=== PATIENT | female | born 1990 | race Caucasian/White ===

== ENCOUNTER 2016-08-03 09:06 | Emergency (ER) | payer OTHER ==
[~2016-08-03] VITALS: Ht 154.9 cm; Wt 86.0 kg
[~2016-08-03 09:06] MED LIST: CIPR500T4 PO; DICY10CA60 PO; ONDA4TAB8 PO
[2016-08-03 09:10] VITALS: Ht 154.9 cm; Wt 86.0 kg
[2016-08-03] MEDS ORDERED: IBUPROFEN 800 MG TAB PO ONE (10:00)
[2016-08-03] MEDS ORDERED: CYCLOBENZAPRINE 10 MG TAB PO ONE (10:00)
--- NOTE | 2016-08-03 10:27 | RADRPT ---
PROCEDURE: XR L-Spine. CLINICAL INDICATION: Low back pain. Low back injury TECHNIQUE: AP, lateral, and cone down views of the lumbar spine were obtained. COMPARISON: None FINDINGS: The lumbar lordosis is maintained. A very minimal dextroscoliosis is seen. The vertebral body and di sk space heights are normal. No acute fracture or subluxation is seen. No paravertebral soft tissu e abnormality is seen. An intrauterine device is identified. IMPRESSION: Unremarkable lumbar spine series. RPTAT: HPNM Physician Jean Date Time Electronically viewed and signed by Physician Jean on 08/03/2016 10:27 /
[2016-08-03] MEDS ORDERED: IBUP-1542 PO (10:42)
--- NOTE | 2016-08-03 14:10 | ERD ---
ER Documentation Chief Complaint Date/Time DATE: 08/03/16 TIME: 14:06 Chief Complaint lower back pain for past 4 days HPI 26-year-old female patient with no significant past medical history presents to the ED complaining of a back injury that occurred yesterday. She lifted up her 30 pound baby and accidentally felt a strain in her back. States that she tried taking ibuprofen at home with slight relief of symptoms. States that her last menses was 3 weeks ago. Denies any chest pain, shortness of breath, abdominal pain, nausea, vomiting, diarrhea, flank pain, dysuria, urgency, frequency, saddle anesthesia, urine or bowel incontinence, numbness or tingling. ROS All systems reviewed and are negative except as per history of present illness. Medications Home Meds Active Scripts Ibuprofen* (Motrin*) 600 Mg Tab, 600 MG PO Q6, #30 TAB Prov:ROSELIA JOSUE PA-C 08/03/16 Ciprofloxacin Hcl* (Ciprofloxacin Hcl*) 500 Mg Tablet, 500 MG PO BID for 7 Days , TAB Prov:OAR VILLAFANA 11/08/15 Dicyclomine Hcl* (Bentyl*) 10 Mg Capsule, 10 MG PO QID for 3 Days, CAP Prov:ORA VILLAFANA C 11/08/15 Ondansetron Hcl* (Zofran*) 4 Mg Tablet, 4 MG PO Q6H for NAUSEA AND/OR VOMITING, #30 TAB Prov:ORA VILLAFANA C 11/08/15 Allergies Allergies: Coded Allergies: No Known Allergy (Unverified , 11/08/15) PMhx/Soc History of Surgery: No Hx Neurological Disorder: No Hx Respiratory Disorders: No Hx Cardiac Disorders: No Hx Psychiatric Problems: No Hx Miscellaneous Medical Probl: No Hx Alcohol Use: Yes (occasionally) Hx Substance Use: No Hx Tobacco Use: No Physical Exam Vitals Vital Signs Date Time Temp Pulse Resp B/P Pulse Ox O2 Delivery O2 Flow Rate FiO2 08/03/16 09:10 97.8 77 18 110/71 100 Physical Exam Const: [id number], well-nourished. In no acute distress. Head: Atraumatic, normocephalic Eyes: Normal Conjunctiva without injection. No purulent discharge. ENT: Normal external ear, nose. Moist oropharynx without tonsillar exudates. Non -erythematous pharynx. Uvula midline. No drooling. No trismus. Neck: No cervical midline tenderness. Full range of motion. No meningismus. No cervical lymphadenopathy. No JVD. Resp: Clear to auscultation bilaterally. No wheezing, rhonchi, rales, or crackles. No accessory muscle use. No retractions. Cardio: Regular rate and rhythm. No murmurs, rubs or gallops. Abd: Soft, nontender,non distended. Normal bowel sounds. No palpable masses. No rebound tenderness. No guarding. Negative McBurney's point. Negative psoas sign. Negative obturator sign. Skin: No petechiae or rashes Back: No midline tenderness. No CVA tenderness. Ext: No cyanosis, or edema. Neur: Awake and alert. Normal gait. Normal coordination. Psych: Normal Mood and Affect Results 24 hrs Current Medications Medications (Trade) Dose Ordered Sig/Luz Marina Route PRN Reason Start Time Stop Time Status Last Admin Dose Admin Ibuprofen (Motrin) 800 mg ONCE ONCE PO 08/03/16 10:00 08/03/16 10:01 DC 08/03/16 09:52 Cyclobenzaprine HCl (Flexeril) 10 mg ONCE ONCE PO 08/03/16 10:00 08/03/16 10:01 DC 08/03/16 09:52 Procedures/MDM 18-year-old female patient with no significant past medical history presents the ED complaining of lower back pain that started about 4 days ago after lifting up her baby that was about 30 pounds. Patient is afebrile nontoxic appearing. Patient has normal vital signs. Patient does have slight tenderness to palpation of L1 region. Therefore a lumbar x-ray was ordered to further evaluate patient. Patient was given ibuprofen and Flexeril here in the ED. PROCEDURE: XR L-Spine. CLINICAL INDICATION: Low back pain. Low back injury TECHNIQUE: AP, lateral, and cone down views of the lumbar spine were obtained. COMPARISON: None FINDINGS: The lumbar lordosis is maintained. A very minimal dextroscoliosis is seen. The vertebral body and disk space heights are normal. No acute fracture or subluxation is seen. No paravertebral soft tissue abnormality is seen. An intrauterine device is identified. IMPRESSION: Unremarkable lumbar spine series. Patient likely sustained a back sprain/strain. Patient is ambulating here in the ED without difficulty. Denies saddle anesthesia, numbness or tingling, urine or bowel incontinence, weakness. Low suspicion for cauda equina syndrome, cord compression, nephrolithiasis, aortic aneurysm, aortic dissection, epidural abscess, spinal hematoma, malignancy, pyelonephritis, or other emergent conditions. Discharge medications: Ibuprofen Follow up with primary care physician in 1-2 days. Instructed patient to return to the ED sooner for any worsening symptoms. Patient's questions were answered. Patient understood and agreed with discharge plan. Patient discharged stable. Departure Diagnosis: Primary Impression: Injury of back Encounter type: initial encounter Qualified Code: S39.92XA - Injury of back , initial encounter Condition: Stable Patient Instructions: Back Sprain/Strain Referrals: [facility] YOU HAVE RECEIVED A MEDICAL SCREENING EXAM AND THE RESULTS INDICATE THAT YOU DO NOT HAVE A CONDITION THAT REQUIRES URGENT TREATMENT IN THE EMERGENCY DEPARTMENT. FURTHER EVALUATION AND TREATMENT OF YOUR CONDITION CAN WAIT UNTIL YOU ARE SEEN IN YOUR DOCTORS OFFICE WITHIN THE NEXT 1-2 DAYS. IT IS YOUR RESPONSIBILITY TO MAKE AN APPOINTMENT FOR FOLOW-UP CARE. IF YOU HAVE A PRIMARY DOCTOR --you should call your primary doctor and schedule an appointment IF YOU DO NOT HAVE A PRIMARY DOCTOR YOU CAN CALL OUR PHYSICIAN REFERRAL HOTLINE AT IF YOU CAN NOT AFFORD TO SEE A PHYSICIAN YOU CAN CHOSE FROM THE FOLLOWING [facility] [address] [facility]. [facility] [address] [facility] [facility] [address] [facility] [facility] [address] [facility] [facility] [address] [facility]. [facility]. [address] [facility]. [facility] YOU HAVE RECEIVED A MEDICAL SCREENING EXAM AND THE RESULTS INDICATE THAT YOU DO NOT HAVE A CONDITION THAT REQUIRES URGENT TREATMENT IN THE EMERGENCY DEPARTMENT. FURTHER EVALUATION AND TREATMENT OF YOUR CONDITION CAN WAIT UNTIL YOU ARE SEEN IN YOUR DOCTORS OFFICE WITHIN THE NEXT 1-2 DAYS. IT IS YOUR RESPONSIBILITY TO MAKE AN APPOINTMENT FOR FOLOW-UP CARE. IF YOU HAVE A PRIMARY DOCTOR --you should call your primary doctor and schedule and appointment IF YOU DO NOT HAVE A PRIMARY DOCTOR YOU CAN CALL OUR PHYSICIAN REFERRAL HOTLINE AT . IF YOU CAN NOT AFFORD TO SEE A PHYSICIAN YOU CAN CHOSE FROM THE FOLLOWING [facility] INSTITUTIONS[facility] [address] [place] [address] [facility] [address] [place] [address] [facility] + [facility] [address] [place] [address] [facility] URGENT CARE/SPECIALTIES Additional Instructions: Call your primary care doctor TOMORROW for an appointment during the next 2-3 days.See the doctor sooner or return here if your condition worsens before your appointment time. ROSELIA JOSUE PA-C August 03, 2016 14:10
== END 2016-08-03 10:42 | disposition home or self-care (01) ==
LOC: FTE 09:06
DX: S39.92XA Unspecified injury of lower back, initial encounter (principal); X50.0XXA Overexertion from strenuous movement or load, initial encounter; Y92.009 Unspecified place in unspecified non-institutional (private) residence as the place of occurrence of the external cause
CPT/HCPCS: 72100; Z7610